=== PATIENT | male | born 1960 | race Caucasian/White ===

== ENCOUNTER 2019-05-02 21:22 | Emergency (ER) | payer MEDICAID ==
[~2019-05-02] VITALS: Ht 167.6 cm; Wt 88.0 kg
[2019-05-02 21:26] VITALS: BP 115/85
--- NOTE | 2019-05-02 21:37 | NUR ---
c/o weakness and vomiting x1 day.
--- NOTE | 2019-05-02 21:48 | NUR ---
ERP at bedside.
[2019-05-02] MEDS ORDERED: ACETAMINOPHEN 500 MG TABLET PO ONE (22:00)
[2019-05-02] MEDS ORDERED: ONDANSETRON ODT 4 MG PO ONE (22:00)
[2019-05-02] MEDS ORDERED: ONDANSETRON ODT 4 MG ONE (22:08)
[2019-05-02] MEDS ORDERED: ACETAMINOPHEN 500 MG TABLET ONE (22:10)
--- NOTE | 2019-05-02 22:30 | NUR ---
Call lab for result on rapid flu test, per [facility]y it will be ready in 7 minutes.
[2019-05-02 22:36] LABS: RAPID INFLUENZA A Negative (Negative); RAPID INFLUENZA B Negative (Negative)
== END 2019-05-02 23:30 | disposition home or self-care (01) ==
LOC: ED 23:18
DX: R11.2 Nausea with vomiting, unspecified (principal); R19.7 Diarrhea, unspecified; B34.9 Viral infection, unspecified; F17.200 Nicotine dependence, unspecified, uncomplicated
CPT/HCPCS: 87400; 99283; Q0162